=== PATIENT | female | born 1945 | race Caucasian/White ===

== ENCOUNTER 2025-05-06 06:20 | Day surgery (SDC) | payer MEDICARE, OTHER ==
[~2025-05-06] VITALS: Ht 165.1 cm; Wt 59.1 kg
[~2025-05-06 06:20] MED LIST: ANIMAL CHEWS1 EACH PO; CALCIUM600 MG PO; FISH OIL-OMEGA1 EACH PO; MAG-TAB SR84 MG PO; MIDAZOLAM HCL 5 MG/5 ML VIAL IV PRN; VITAMIN D22000 UNIT PO; fentaNYL citrate 100 MCG/2 ML VIAL IV PRN
[2025-05-06 06:46] VITALS: BP 145/67
[2025-05-06] MEDS ORDERED: fentaNYL citrate 100 MCG/2 ML VIAL ONE (06:57)
[2025-05-06] MEDS ORDERED: MIDAZOLAM HCL 5 MG/5 ML VIAL ONE (06:57)
[2025-05-06] MEDS ORDERED: IBLOOD GLUCOSE TEST STRIP 1 EA TEST VI PRN (07:00)
[2025-05-06] MEDS ORDERED: LACTATED RINGER'S 1,000 ML IV SCH (07:00)
[2025-05-06] MEDS ORDERED: LIDOCAINE HCL 1% 5 ML SDV INJ ONE (07:00)
--- NOTE | 2025-05-06 07:29 | NUR ---
VISITED DURING SPIRITUAL CARE ROUNDS. PT IN OVERALL GOOD SPIRITS, NO IMMEDIATE NEEDS. SUPERVISOR TAPING PROVIDED SUPPORTIVE PRESENCE, HOSPITALITY, PRAYER, NORMALIZED PT EXPERIENCE. PT EXPRESSED GRATITUDE, HOPE, FAMILY CONNECTIONS SOURCE OF STRENGTH.
[2025-05-06] MEDS ORDERED: ATROPINE SULFATE 1 MG/ML VIAL ONE (08:00)
--- NOTE | 2025-05-06 08:40 | NUR ---
05/06/25 0840 Britni Alonzo 0819 PT ARRIVED IN PACU WIDE AWAKE AND TALKING TO STAFF. NO C/O'S. ABD SOFT. [address] AT BEDSIDE. ALL QUESTIONS ANSWERED. 0835 SITTING UP IN BED SIPPING ON WATER.
[2025-05-06 08:43] VITALS: BP 116/73
--- NOTE | 2025-05-09 11:32 | OR ---
[facility] [address], [place] [address] Signed DATE OF OPERATION: 05/06/2025 SURGEON: Franck Eckert MD PREOPERATIVE DIAGNOSIS: Colon screening. POSTOPERATIVE DIAGNOSES: 1. Sigmoid diverticulosis. 2. Asymptomatic bradycardia during procedure (treated). PROCEDURE: Total colonoscopy to cecum. ANESTHESIA: Intravenous sedation, fentanyl 100 mcg, and Versed 5 mg. INDICATION: This 79-year-old white woman is a patient of Stefan Garibay. She underwent colonoscopy in 2013 where she was found to have a tubular adenoma. She has no family history of colon cancer and no current symptoms of bleeding, diarrhea or constipation. She is admitted for surveillance colonoscopy. She understands the risk of bleeding, infection, and perforation related to colonoscopy and wished to proceed. FINDINGS: The prep was good. Complete colonoscopy was undertaken to the cecum. Passage through the sigmoid area was challenging on the basis of angulation deformity related to small diverticula, which did cause recurring bradycardia to as low as 31 beats per minute. On that basis, she was treated with atropine 0.5 mg. This allowed for her heart rate to remain in the 60-70 range without problem and passage through the sigmoid without any further issues of bradycardia. She was asymptomatic from it, not hypotensive. DESCRIPTION OF PROCEDURE: The patient was brought to the endoscopy suite and placed in lateral decubitus position, given intravenous sedation to the point of slurred speech and nystagmus. Digital rectal examination was normal. An Olympus video colonoscope was passed in the rectum and manipulated into the sigmoid where angulation deformity was noted. Small diverticula were noted as well. The scope was carefully manipulated through this area, but recurring bradycardia was noted to Electronically Signed By: FRANCK ECKERT MD 05/09/25 1132 PATIENT NAME: RIVKA AGUILERA OPERATIVE REPORT DATE OF : 49 REPORT #: [id number] PHYSICIAN: FRANCK ECKERT MD PCP: STEFAN GARIBAY PA-C REPORT IS CONFIDENTIAL AND NOT TO BE RELEASED WITHOUT AUTHORIZATION [facility] [address], [place] [address] Signed heart rate as low as 30-31. There was one episode despite minimal pressure of a pause of the heart rate for approximately 3-4 seconds. The scope was withdrawn a bit and heart rate returned to the 40-45 range. She was clinically stable. Atropine 0.5 mg was administered and within about a minute, her heart rate was up to the 60-75 level and this allowed for passage of the scope without further episodes of bradycardia ultimately to the cecum. The ileocecal valve and appendiceal orifice were identified as normal. The scope was then withdrawn. Examination showed no sign of abnormality other than diverticula of the sigmoid, which were minimal in amount. Retroflexed view of the rectum was normal. Scope was removed. The patient was taken to the recovery room in good condition. CONCLUDING DIAGNOSIS: Diverticulosis, no evidence of polyps. PLAN: Recommend repeat colonoscopy in 10 years if clinically appropriate at her advanced age of 89 years at that time. She will return to the ongoing care of SEBASTIEN Rodriguez. MD THOM Garcia/MO /[id number] cc: SEBASTIEN Rodriguez Copies: ~ Electronically Signed By: FRANCK ECKERT MD 05/09/25 1132 PATIENT NAME: RIVKA GAUILERA OPERATIVE REPORT DATE OF : 49 REPORT #: [id number] PHYSICIAN: FRANCK ECKERT MD PCP: STEFAN GARIBAY PA-C REPORT IS CONFIDENTIAL AND NOT TO BE RELEASED WITHOUT AUTHORIZATION
== END 2025-05-06 08:51 | disposition home or self-care (01) ==
LOC: DS 06:20
PROVIDERS: ATTEND Surgery
PROC: 0DJD8ZZ Inspection of Lower Intestinal Tract, Via Natural or Artificial Opening Endoscopic (ICD-10-PCS; principal; 2025-05-06 07:30)
DX: Z12.11 Encounter for screening for malignant neoplasm of colon (principal); K57.30 Diverticulosis of large intestine without perforation or abscess without bleeding; D49.59 Neoplasm of unspecified behavior of other genitourinary organ; Z86.0100 Personal history of colon polyps, unspecified; Z98.41 Cataract extraction status, right eye
CPT/HCPCS: 99153; G0500; J0461; J2250; J3010; J7121

== ENCOUNTER 2025-05-21 14:14 | Emergency (ER) | payer MEDICARE, OTHER ==
[~2025-05-21] VITALS: Ht 165.1 cm; Wt 57.7 kg
[~2025-05-21 14:14] MED LIST changes: -MIDAZOLAM HCL 5 MG/5 ML VIAL IV PRN; -fentaNYL citrate 100 MCG/2 ML VIAL IV PRN
[2025-05-21] MEDS ORDERED: DIPHTH,PERTUSS(ACELL),TET VAC 0.5 ML SYRINGE IM ONE (17:15)
[2025-05-21 17:29] VITALS: BP 173/88
== END 2025-05-21 17:30 | disposition home or self-care (01) ==
LOC: ED 14:14
DX: S00.03XA Contusion of scalp, initial encounter (principal); S60.211A Contusion of right wrist, initial encounter; S80.811A Abrasion, right lower leg, initial encounter; Z88.5 Allergy status to narcotic agent; Z88.8 Allergy status to other drugs, medicaments and biological substances; Z79.899 Other long term (current) drug therapy; W10.9XXA Fall (on) (from) unspecified stairs and steps, initial encounter
CPT/HCPCS: 70450; 73110; 90471; 90715; 99284-25